=== PATIENT | male | born 1945 | race Caucasian/White ===

== ENCOUNTER → 2021-05-26 09:34 | Outpatient (CLI) | payer OTHER, SELFPAY ==
[2021-05-26 09:48] VITALS: BP 126/57; PULSE 81; RESP 16; TEMP 36.5; O2SAT 96; BMI 24.7
[2021-05-26 10:29] VITALS: BP 95/50; PULSE 66; RESP 16; TEMP 36.3
== END ==
PROVIDERS: Referring Provider Internal Medicine Hematology & Oncology; Visit Provider Internal Medicine Hematology & Oncology
DX: D69.59 Other secondary thrombocytopenia (principal); D64.81 Anemia due to antineoplastic chemotherapy
CPT/HCPCS: 36430; 86900; 86901; 86965; J7040; P9035; A4216